=== PATIENT | female | born 1990 | race African-American/Black ===

== ENCOUNTER 2021-02-28 02:59 | Emergency (ER) | payer MEDICAID ==
[~2021-02-28] VITALS: Ht 172.7 cm; Wt 79.0 kg
[2021-02-28] MEDS ORDERED: MORPHINE SULFATE 4 MG/ML CPJ (NOT FOR IM USE) IV STA (03:33)
[2021-02-28] MEDS ORDERED: ONDANSETRON HCL 4MG/2ML INJ IV STA (03:33)
[2021-02-28] MEDS ORDERED: BACITRACIN ZINC OINT UDPKT TOP ONE (03:45)
[2021-02-28] MEDS ORDERED: TETANUS, DIPHTHERIA, PERTUSSIS VAC/PF 0.5ML (>7YR OLD) IM ONE (03:45)
[2021-02-28] MEDS ORDERED: CEFAZOLIN 1000MG PREMIX 50 ML IV ONE (03:45)
[2021-02-28] MEDS ORDERED: LIDOCAINE HCL 1% 20ML VIAL (Pyxis) INJ INFIL ONE (03:45)
[2021-02-28] MEDS ORDERED: IBUP-2029 MT (05:28)
[2021-02-28 06:06] VITALS: BP 122/76
== END 2021-02-28 06:07 | disposition home or self-care (01) ==
LOC: ER 02:59
DX: S81.012A Laceration without foreign body, left knee, initial encounter (principal); S40.212A Abrasion of left shoulder, initial encounter; S50.311A Abrasion of right elbow, initial encounter; S80.211A Abrasion, right knee, initial encounter; Y07.03 Male partner, perpetrator of maltreatment and neglect; V87.8XXA Person injured in other specified noncollision transport accidents involving motor vehicle (traffic), initial encounter; Y93.89 Activity, other specified; Y92.488 Other paved roadways as the place of occurrence of the external cause; R03.0 Elevated blood-pressure reading, without diagnosis of hypertension; Z23 Encounter for immunization
CPT/HCPCS: 12002; 73564; 90471; 90715; 96365; 96375; 99284; J0690; J2270; J2405; J3490; Z7610

== ENCOUNTER 2021-03-12 20:12 | Emergency (ER) | payer MEDICAID ==
[~2021-03-12] VITALS: Ht 172.7 cm; Wt 73.0 kg
[~2021-03-12 20:12] MED LIST: IBUP-2029 MT
[2021-03-12] MEDS ORDERED: MAGNESIUM/ALUMINUM HYDROXIDE/SIMETHICONE 30ML UDC PO STA (20:40)
[2021-03-12] MEDS ORDERED: VISCOUS LIDOCAINE 2% 15 ML UDC PO STA (20:40)
[2021-03-12] MEDS ORDERED: ONDANSETRON HCL 4MG/2ML INJ IV STA (20:40)
[2021-03-12 21:24] LABS: BASOPHILS % 0.4 % (0.0-2.0); EOSINOPHILS % 1.2 % (0.0-5.0); HEMOGLOBIN. 12.2 g/dL (12.0-16.0); LYMPHOCYTES % 16.6 % (20.0-50.0); MEAN CORPUSCULAR HEMOGLOBIN 31.8 pg (28.0-32.0); MEAN CORPUSCULAR VOLUME 94.1 fL (81.0-99.0); MEAN PLATELET VOLUME 7.3 fl (7.4-10.4); MONOCYTES % 5.8 % (2.0-8.0); PLATELET 366 x1000/uL (130-400); RED BLOOD CELL COUNT 3.82 mill/uL (4.2-5.4); RED CELL DISTRIBUTION WIDTH 13.4 % (11.6-14.6)
[2021-03-12 21:34] LABS: CHLORIDE 105 mEq/L (98-107)
[2021-03-12 22:45] VITALS: BP 124/82
== END 2021-03-12 23:02 | disposition home or self-care (01) ==
LOC: ER 20:12
DX: R11.2 Nausea with vomiting, unspecified (principal); R19.7 Diarrhea, unspecified; F12.10 Cannabis abuse, uncomplicated; I49.9 Cardiac arrhythmia, unspecified; Z20.822 Contact with and (suspected) exposure to COVID-19
CPT/HCPCS: 36415; 80053; 81025; 85025; 93005; 96374; 99285; C9803; J2405; U0003; Z7610

== ENCOUNTER 2021-05-08 22:00 | Emergency (ER) | payer MEDICAID ==
[~2021-05-08] VITALS: Ht 172.7 cm; Wt 69.0 kg
[2021-05-08] MEDS ORDERED: LIDOCAINE HCL/EPINEPHRINE 1%-EPI 1:100,000 20 ML VIAL INFIL ONE (23:00)
[2021-05-08] MEDS ORDERED: BACITRACIN ZINC OINT UDPKT TOP ONE (23:00)
[2021-05-08] MEDS ORDERED: IBUPROFEN 600MG TABLET PO ONE (23:00)
[2021-05-09] MEDS ORDERED: TETANUS, DIPHTHERIA, PERTUSSIS VAC/PF 0.5ML (>7YR OLD) IM ONE
[2021-05-09 00:35] VITALS: BP 127/66
[2021-05-09] MEDS ORDERED: IBUP-2029 PO (00:35)
== END 2021-05-09 00:48 | disposition home or self-care (01) ==
LOC: ER 22:00
DX: S81.812A Laceration without foreign body, left lower leg, initial encounter (principal); W22.8XXA Striking against or struck by other objects, initial encounter; Y93.01 Activity, walking, marching and hiking; Y92.488 Other paved roadways as the place of occurrence of the external cause; F12.90 Cannabis use, unspecified, uncomplicated; Z23 Encounter for immunization
CPT/HCPCS: 12054; 90471; 90715; 99283; J3490

== ENCOUNTER 2021-06-03 22:31 | Emergency (ER) | payer MEDICAID ==
[~2021-06-03] VITALS: Ht 167.6 cm; Wt 70.0 kg
[~2021-06-03 22:31] MED LIST changes: +IBUP-2029 PO
[2021-06-03 23:15] VITALS: BP 118/80
== END 2021-06-03 23:16 | disposition home or self-care (01) ==
LOC: ER 22:31
DX: Z48.02 Encounter for removal of sutures (principal)
CPT/HCPCS: 99281